=== PATIENT | female | born 1965 | race Caucasian/White ===

== ENCOUNTER → 2016-10-31 | Outpatient (CLI) | payer OTHER | LOC: OD 08:25 | PROVIDERS: ATTEND Specialist | DX: R91.1 Solitary pulmonary nodule (principal) | CPT/HCPCS: 71020 ==

== ENCOUNTER → 2016-11-01 | Outpatient (CLI) | payer MEDICAID, OTHER | LOC: WI 13:16 | PROVIDERS: ATTEND Specialist | DX: Z12.31 Encounter for screening mammogram for malignant neoplasm of breast (principal) | CPT/HCPCS: 77067; G0202 ==

== ENCOUNTER 2016-11-16 08:49 | Outpatient (CLI) | payer OTHER ==
[~2016-11-16 08:49] MED LIST: FERRIC CARBOXYMALTOSE 750 MG in NORMAL SALINE 250 ML IV PRN; NORMAL SALINE 250 ML IV PRN
[2016-11-16 09:09] VITALS: BP 112/71
== END 2016-11-16 09:42 | disposition home or self-care (01) ==
LOC: II 08:49
PROVIDERS: ATTEND Specialist
PROC: 3E033GC Introduction of Other Therapeutic Substance into Peripheral Vein, Percutaneous Approach (ICD-10-PCS; principal; 2016-11-16)
DX: D64.9 Anemia, unspecified (principal); K90.49 Malabsorption due to intolerance, not elsewhere classified
CPT/HCPCS: 96365; J7050; J1439

== ENCOUNTER 2016-11-23 08:33 | Outpatient (CLI) | payer OTHER ==
[2016-11-23 09:13] VITALS: BP 106/56
== END 2016-11-23 09:41 | disposition home or self-care (01) ==
LOC: II 08:33 → 5TH 08:34 → II 09:41
PROVIDERS: ATTEND Specialist
PROC: 3E033GC Introduction of Other Therapeutic Substance into Peripheral Vein, Percutaneous Approach (ICD-10-PCS; principal; 2016-11-23)
DX: D64.9 Anemia, unspecified (principal); K90.49 Malabsorption due to intolerance, not elsewhere classified
CPT/HCPCS: 96365; J7050; J1439; 96367

== ENCOUNTER → 2017-11-29 | Outpatient (CLI) | payer OTHER ==
--- NOTE | 2017-11-29 14:24 | RADIOLOGY REPORT (SQ) ---
EXAM DESCRIPTION: CHEST PA/LAT COMPLETED DATE/TIME: 11/29/2017 1:50 pm REASON FOR STUDY: COUGH COMPARISON: 03/15/2011 EXAM PARAMETERS: NUMBER OF VIEWS: two views TECHNIQUE: Digital Frontal and Lateral radiographic views of the chest acquired. RADIATION DOSE: NA LIMITATIONS: none FINDINGS: LUNGS AND PLEURA: The lungs are hyperexpanded with flattening of the diaphragms. There is no infiltrate or effusion. No mass is seen. MEDIASTINUM AND HILAR STRUCTURES: No masses or contour abnormalities. HEART AND VASCULAR STRUCTURES: Heart normal size. No evidence for failure. BONES: No acute findings. HARDWARE: None in the chest. OTHER: No other significant finding. IMPRESSION: Chronic lung changes with no acute cardiopulmonary disease. TECHNICAL DOCUMENTATION: JOB ID: [id number] [employer]- All Rights Reserved Reading location - IP/workstation name: [email or web address]
== END ==
LOC: RAD 13:26
PROVIDERS: ATTEND Nurse Practitioner Family
DX: R05 Cough (principal)
CPT/HCPCS: 71046